=== PATIENT | female | born 1980 | race Caucasian/White ===

== ENCOUNTER 2020-05-27 08:24 | Emergency (ER) | payer OTHER ==
[2020-05-27] MEDS ORDERED: SODIUM CHLORIDE 1,000 ML IV STA (08:44)
[2020-05-27] MEDS ORDERED: ONDANSETRON 4 MG/2 ML VIAL IVPB ONE (08:44)
[2020-05-27] MEDS ORDERED: KETOROLAC TROMETHAMINE 30 MG/1 ML VIAL IVPUSH ONE (08:44)
[2020-05-27] MEDS ORDERED: ONDANSETRON 4 MG/2 ML VIAL ONE (08:48)
[2020-05-27] MEDS ORDERED: KETOROLAC TROMETHAMINE 30 MG/1 ML VIAL ONE (08:48)
[2020-05-27 08:56] VITALS: BP 133/87; PULSE 83; TEMP 99; BMI 53.2
[2020-05-27 09:06] LABS: BASO % 0.4 % (0-2.0); EOS % 4.3 % (0-4.5); HEMATOCRIT 38.1 % (32.4-45.2); HEMOGLOBIN 13.3 GM/dl (10.7-15.3); LYMPH % 31.1 % (8-40); MCH 30.2 pg (25.7-33.7); MCHC 34.8 g/dl (32.0-36.0); MEAN CELL VOLUME 86.8 fl (80-96); MEAN PLT VOLUME 7.3 fl (7.5-11.1); MONO % 6.7 % (3.8-10.2); NEUT % 57.5 % (42.8-82.8); PLATELET COUNT 351 K/MM3 (134-434); RBC 4.39 M/mm3 (3.60-5.2); WHITE BLOOD COUNT 6.2 K/mm3 (4.0-10.8)
[2020-05-27 09:13] LABS: ALBUMIN 4.3 g/dl (3.4-5.0); BILIRUBIN,TOTAL 0.6 mg/dl (0.2-1); CALCIUM 9.2 mg/dl (8.5-10); CREATININE 0.8 mg/dl (0.55-1.3)
[2020-05-27 09:19] LABS: EPITHELIAL CELLS MODERATE /hpf
== END 2020-05-27 10:08 | disposition home or self-care (01) ==
LOC: FER 08:24
PROC: 3E0333Z Introduction of Anti-inflammatory into Peripheral Vein, Percutaneous Approach (ICD-10-PCS; principal; 2020-05-27)
PROC: 3E033GC Introduction of Other Therapeutic Substance into Peripheral Vein, Percutaneous Approach (ICD-10-PCS; 2020-05-27)
PROC: 3E0337Z Introduction of Electrolytic and Water Balance Substance into Peripheral Vein, Percutaneous Approach (ICD-10-PCS; 2020-05-27)
DX: N23 Unspecified renal colic (principal)
CPT/HCPCS: 36415; 74176-TC; 80053; 81003; 81015; 84703; 85025; 87086; 96361; 96374; 96375; 99284-25

== ENCOUNTER 2021-07-27 13:17 | Emergency (ER) | payer OTHER ==
[2021-07-27 13:35] VITALS: BP 96/62; PULSE 66; TEMP 99; BMI 22.8
== END 2021-07-27 14:19 | disposition home or self-care (01) ==
LOC: FER 13:17
DX: U07.1 COVID-19 (principal); R00.2 Palpitations
CPT/HCPCS: 99281-25